=== PATIENT | male | born 1960 | race Caucasian/White ===

== ENCOUNTER 2017-05-02 12:49 | Emergency (ER) | payer SELFPAY ==
[~2017-05-02] VITALS: Ht 182.9 cm; Wt 80.0 kg
[2017-05-02 12:51] VITALS: BP 151/96; PULSE 87; RESP 20; TEMP 97.8; O2SAT 98
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
[2017-05-02] MEDS ORDERED: BACT800T5 PO (13:37)
== END 2017-05-02 14:03 | disposition home or self-care (01) ==
LOC: NEPK 12:49
DX: S91.002A Unspecified open wound, left ankle, initial encounter (principal); L03.116 Cellulitis of left lower limb; S80.212A Abrasion, left knee, initial encounter; Z72.0 Tobacco use; Z86.69 Personal history of other diseases of the nervous system and sense organs; V19.88XA Pedal cyclist (driver) (passenger) injured in other specified transport accidents, initial encounter; Y93.55 Activity, bike riding
CPT/HCPCS: 99283

== ENCOUNTER 2017-05-25 19:37 | Emergency (ER) | payer SELFPAY ==
[~2017-05-25 19:37] MED LIST: BACT800T5 PO
[2017-05-25 19:43] VITALS: BP 99/64; PULSE 83; RESP 16; TEMP 98.3; O2SAT 99
--- NOTE | 2017-05-25 19:48 | PD ---
Physical Exam Date Seen by Provider: May 25, 2017 Time Seen by Provider: 19:46 Narrative 57 yo male here for evaluation of right hand infection. Has had this before. Was started on antibiotics and missed the last two doses as he was in retirement. Concerned that is coming back. Here for antibiotics. Vitals are stable in triage. Awaiting Bed placement. Data Data Last Documented VS Vital Signs Date Time Temp Pulse Resp B/P Pulse Ox O2 Delivery O2 Flow Rate FiO2 05/25/17 19:43 98.3 83 16 99/64 99 Room Air [facility] Medical Record Reviewed: Yes Supervised Visit with NASREEN: No Rolan Ellington May 25, 2017 19:48
[2017-05-25] MEDS ORDERED: CEPHALEXIN MONOHYDRATE 500 MG CAP PO ONE (20:15)
[2017-05-25] MEDS ORDERED: CEPH500C PO (20:15)
[2017-05-25] MEDS ORDERED: BACT800T5 PO (20:15)
[2017-05-25] MEDS ORDERED: SULFAMETHOXAZOLE-TRIMETHOPRIM DS 800-160 MG TAB PO ONE (20:15)
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
== END 2017-05-25 20:50 | disposition home or self-care (01) ==
LOC: NEPK 19:37
DX: L02.511 Cutaneous abscess of right hand (principal); F17.210 Nicotine dependence, cigarettes, uncomplicated
CPT/HCPCS: 99284

== ENCOUNTER 2017-07-21 13:29 | Emergency (ER) | payer SELFPAY ==
[~2017-07-21] VITALS: Ht 182.9 cm; Wt 75.0 kg
[~2017-07-21 13:29] MED LIST changes: +CEPH500C PO
[2017-07-21 13:31] VITALS: BP 124/79; PULSE 71; RESP 16; TEMP 98.9; O2SAT 98
--- NOTE | 2017-07-21 14:13 | PD ---
HPI Chief Complaint: Skin Problem Time Seen by Provider: 14:13 Travel History International Travel<30 days: No Contact w/Intl Traveler<30days: No Traveled to known affect area: No History of Present Illness HPI 57-year-old male presents emergency Department with complaint of a a bump to his right anterior distal thigh that started out as a pimple-like bump this morning with worsening throughout the day. Denies fever, vomiting. Says the bump is been draining some light red fluid. Denies burn. Says he's had similar bumps in the past and was given antibiotics. Has not taken any medication or trencher was sleepy his symptoms. No known aggravating or relieving factors. Has no other medical complaints. No known allergies. Symptoms are mild in severity. No other modifying factors or associated signs and symptoms. PFSH Past Medical History Autoimmune Disease: No Blood Disorders: No Anxiety: No Depression: No Cancer: No Cardiovascular Problems: No Chemotherapy: No Diminished Hearing: No Endocrine: No Genitourinary: No Musculoskeletal: No Neurologic: Yes (H/O BRAIN BLEED WITH CRANIOTOMY) Psychiatric: No Reproductive: No Respiratory: No Radiation Therapy: No Past Surgical History Abdominal Surgery: Yes (HERNIA) Neurologic Surgery: Yes (HX BRAIN BLEED WITH CRANIOTOMY) Pacemaker: No Other Surgery: Yes (HAD ACRAINOTOMY,BRAIN BLEED AROUND 11 YEARS AGO,HERNIA REPAIR) Social History Alcohol Use: No Tobacco Use: Yes (10 cigarettes a day) Substance Use: Yes Allergies-Medications (Allergen,Severity, Reaction): Coded Allergies: No Known Allergies (Verified , 07/21/17) Reported Meds & Prescriptions Reported Meds & Active Scripts Active Bactrim DS (Sulfamethoxazole-Trimethoprim) 800-160 Mg Tab 1 Tab PO BID 10 Days Keflex (Cephalexin) 500 Mg Cap 500 Mg PO Q6H 10 Days Cephalexin 500 Mg Cap 500 Mg PO Q6H Bactrim DS (Sulfamethoxazole-Trimethoprim) 800-160 Mg Tab 1 Tab PO BID Review of Systems Except as stated in HPI: all other systems reviewed are Neg Physical Exam Narrative GENERAL: Well-nourished, well-developed male patient, in no acute distress; afebrile, nontoxic-appearing; disheveled SKIN: There is soft thick blisterlike-appearing fluctuant bump to the right anterior distal thigh just above the knee which measures approximately 1-1/2 cm in diameter with minimal surrounding erythema. It is fluctuant and draining minimal amount of serosanguineous fluid. There is a zone of inflammation around it but no lymphangitis. HEAD: Atraumatic. Normocephalic. EYES: Pupils equal and round. No scleral icterus. No injection or drainage. ENT: Mucosa pink and moist. Airway patent. NECK: Trachea midline. CARDIOVASCULAR: Regular rate. RESPIRATORY: No accessory muscle use. GASTROINTESTINAL: Flat. MUSCULOSKELETAL: No obvious deformities. No clubbing. No cyanosis. No edema. NEUROLOGICAL: Awake and alert. Oriented 3. No obvious cranial nerve deficits. Motor grossly within normal limits. Normal speech. PSYCHIATRIC: Appropriate mood and affect; insight and judgment normal. Data Data Last Documented VS Vital Signs Date Time Temp Pulse Resp B/P (MAP) Pulse Ox O2 Delivery O2 Flow Rate FiO2 07/21/17 13:31 98.9 71 16 124/79 (94) 98 Orders Orders Wound Culture And Gram Stain (07/21/17 14:18) [facility] Medical Decision Making Medical Screen Exam Complete: Yes Emergency Medical Condition: Yes Medical Record Reviewed: Yes Differential Diagnosis Blister, abscess, cellulitis Narrative Course 57-year-old male with abscess of anterior right thigh. He reviewed the record and the patient has history of MRSA. I was able to squeeze the area and a minimal amount of purulent and serosanguineous fluid was drained. Wound culture pending. Patient is afebrile and nontoxic-appearing. Denies fever, vomiting. Keflex and Bactrim prescribed for home. Instructed patient to follow up with primary care provider. Patient verbalizes understanding and agreement with treatment plan. Patient is medically cleared and stable for discharge. Discussed reasons to return to the emergency department. Patient agrees with treatment plan. The patients vital signs are stable and the patient is stable for outpatient follow-up and treatment. Patient discharged home, stable and in no acute distress. Diagnosis Primary Impression: Abscess of right thigh Referrals: [facility] Primary Care Physician Patient Instructions: Abscess (ED), Abscess Follow-up (ED), General Instructions Additional Instructions: Complete full course of antibiotics Warm compresses to the affected area Keep area clean and dry Ibuprofen or Tylenol as directed and as needed for pain and inflammation Follow-up with primary care provider Return to emergency department immediately with worsening of symptoms Med/Other Pt SpecificInfo: Prescription(s) given Scripts Sulfamethoxazole-Trimethoprim (Bactrim DS) 800-160 Mg Tab 1 TAB PO BID for Infection for 10 Days, #20 TAB 0 Refills Prov: Frances Gavin 07/21/17 Cephalexin (Keflex) 500 Mg Cap 500 MG PO Q6H for Infection for 10 Days, #40 CAP 0 Refills Prov: Frances Gavin 07/21/17 Disposition: 01 DISCHARGE HOME Condition: Stable Frances Gavin Jul 21, 2017 14:13
[2017-07-21] MEDS ORDERED: CEPH-460 PO (14:16)
[2017-07-21] MEDS ORDERED: BACT800T5 PO (14:16)
== END 2017-07-21 14:27 | disposition home or self-care (01) ==
LOC: NEPK 13:29
DX: L02.415 Cutaneous abscess of right lower limb (principal); B95.1 Streptococcus, group B, as the cause of diseases classified elsewhere; Z71.6 Tobacco abuse counseling
CPT/HCPCS: 86403; 87070; 99284

== ENCOUNTER 2017-09-23 15:51 | Emergency (ER) | payer SELFPAY ==
[~2017-09-23] VITALS: Ht 182.9 cm; Wt 68.0 kg
[~2017-09-23 15:51] MED LIST changes: +CEPH-460 PO
[2017-09-23 15:53] VITALS: BP 133/80; PULSE 96; RESP 20; TEMP 98; O2SAT 97
[2017-09-23] MEDS ORDERED: BACT800T5 PO (18:37)
[2017-09-23] MEDS ORDERED: CEPH-460 PO (18:37)
--- NOTE | 2017-09-23 18:37 | PD ---
HPI Chief Complaint: Skin Problem Time Seen by Provider: 18:34 Travel History International Travel<30 days: No Contact w/Intl Traveler<30days: No Traveled to known affect area: No History of Present Illness HPI 57-year-old male presents to emergency room with complaint of lesions to the back of his left hand and one to his forearm 4 days. Says he was here in May with a similar complaint to his right hand and was given antibiotics which cleared the lesions up. Reports areas are not painful and thus he touches them. Denies paresthesias, loss of sensation or decreased range of motion or strength to the affected extremity. Denies fever, vomiting. Has tried some in the ocean to clear them up with no relief. Has not tried any other medications or treatments to alleviate symptoms. No known allergies. Has no other medical complaints. No other modifying factors or associated signs and symptoms. PFSH Past Medical History Autoimmune Disease: No Blood Disorders: No Anxiety: No Depression: No Cancer: No Cardiovascular Problems: No Chemotherapy: No Diminished Hearing: No Endocrine: No Gastrointestinal Disorders: No Genitourinary: No Musculoskeletal: No Neurologic: Yes (H/O BRAIN BLEED WITH CRANIOTOMY) Psychiatric: No Reproductive: No Respiratory: No Radiation Therapy: No Past Surgical History Abdominal Surgery: Yes (HERNIA) Neurologic Surgery: Yes (HX BRAIN BLEED WITH CRANIOTOMY) Pacemaker: No Other Surgery: Yes (HAD ACRAINOTOMY,BRAIN BLEED AROUND 11 YEARS AGO,HERNIA REPAIR) Social History Alcohol Use: No Tobacco Use: Yes (10 cigarettes a day) Substance Use: Yes Allergies-Medications (Allergen,Severity, Reaction): Coded Allergies: No Known Allergies (Verified , 07/21/17) Reported Meds & Prescriptions Reported Meds & Active Scripts Active Bactrim DS (Sulfamethoxazole-Trimethoprim) 800-160 Mg Tab 1 Tab PO BID 10 Days Keflex (Cephalexin) 500 Mg Cap 500 Mg PO Q6H 10 Days Cephalexin 500 Mg Cap 500 Mg PO Q6H Bactrim DS (Sulfamethoxazole-Trimethoprim) 800-160 Mg Tab 1 Tab PO BID Review of Systems Except as stated in HPI: all other systems reviewed are Neg Physical Exam Narrative GENERAL: Well-nourished, well-developed male patient, in no acute distress; afebrile, nontoxic-appearing; disheveled SKIN: There are approximately 3 dried crusted lesions to the back of the left hand and one to the left forearm; without surrounding erythema; without edema; without drainage. No fluctuance. No lymphangitis. HEAD: Atraumatic. Normocephalic. EYES: Pupils equal and round. No scleral icterus. No injection or drainage. ENT: Mucosa pink and moist. Airway patent. NECK: Trachea midline. CARDIOVASCULAR: Regular rate. RESPIRATORY: No accessory muscle use. GASTROINTESTINAL: Flat. MUSCULOSKELETAL: No obvious deformities. No clubbing. No cyanosis. No edema. NEUROLOGICAL: Awake and alert. Oriented 3. No obvious cranial nerve deficits. Motor grossly within normal limits. Normal speech. PSYCHIATRIC: Appropriate mood and affect; insight and judgment normal. Data Data Last Documented VS Vital Signs Date Time Temp Pulse Resp B/P (MAP) Pulse Ox O2 Delivery O2 Flow Rate FiO2 09/23/17 15:53 98.0 96 20 133/80 (97) 97 Room Air Orders Orders Ed Discharge Order (09/23/17 18:38) MDM Medical Decision Making Medical Screen Exam Complete: Yes Emergency Medical Condition: Yes Medical Record Reviewed: Yes Differential Diagnosis Abscess, MRSA, staph infection, cellulitis Narrative Course 57-year-old male with multiple sclerosis the left hand that are crusted, dry and without drainage. Left hand and forearm are without erythema, edema. No lymphangitis. She is afebrile and nontoxic-appearing. Patient was seen in May was given Keflex and Bactrim for similar complaint of right hand and he says he cleared lesions. Bactrim and Keflex prescribed for home. Instructed patient to follow up with primary care provider. Patient verbalizes understanding and agreement with treatment plan. Patient is medically cleared and stable for discharge. Discussed reasons to return to the emergency department. Patient agrees with treatment plan. The patients vital signs are stable and the patient is stable for outpatient follow-up and treatment. Patient discharged home, stable and in no acute distress. Diagnosis Primary Impression: Abscess of left hand Referrals: [facility] Primary Care Physician Patient Instructions: Abscess (ED), Abscess Follow-up (ED), General Instructions Additional Instructions: Complete full course of antibiotics Warm compresses to the affected area Keep area clean and dry Ibuprofen or Tylenol as directed and as needed for pain and inflammation Follow-up with primary care provider Return to emergency department immediately with worsening of symptoms Med/Other Pt SpecificInfo: Prescription(s) given Scripts Sulfamethoxazole-Trimethoprim (Bactrim DS) 800-160 Mg Tab 1 TAB PO BID for Infection for 10 Days, #20 TAB 0 Refills Prov: Frances Gavin 09/23/17 Cephalexin (Keflex) 500 Mg Cap 500 MG PO Q6H for Infection for 10 Days, #40 CAP 0 Refills Prov: Frances Gavin 09/23/17 Disposition: 01 DISCHARGE HOME Condition: Stable Frances Gavin Sep 23, 2017 18:37
== END 2017-09-23 18:45 | disposition home or self-care (01) ==
LOC: NEPD 15:51
DX: L02.512 Cutaneous abscess of left hand (principal); G35 Multiple sclerosis; F17.210 Nicotine dependence, cigarettes, uncomplicated
CPT/HCPCS: 99284